=== PATIENT | female | born 1940 | race Caucasian/White ===

== ENCOUNTER 2016-09-06 11:04 | Emergency (ER) | payer MEDICARE ==
[2016-09-06 11:08] VITALS: TEMP 97.8
[2016-09-06 13:29] VITALS: BP 118/58; PULSE 69; RESP 18
--- NOTE | 2016-09-06 14:17 | ED ---
General Adult HPI - General Chief complaint: Headache Stated complaint: head pain Time Seen by Provider: 09/06/16 12:38 Source: patient, RN notes reviewed, old records reviewed Mode of arrival: ambulatory Limitations: no limitations - History of Present Illness Initial comments: This is a 76-year-old female the ER with left-sided neck pain. Patient has no sniffing medical history, no history of headaches or similar symptoms. No fevers no travel history no neurological complaints. No visual changes no hearing changes. Left-sided shooting pain up the back of her neck is occasional and episodic. No again no modifying factors. No trauma - Related Data Home Medications Medication Instructions Recorded Confirmed Aspirin 81 mg PO DAILY 09/06/16 09/06/16 Multivitamins, Thera [Multivitamin] 1 tab PO DAILY 09/06/16 09/06/16 Allergies Allergy/AdvReac Type Severity Reaction Status Date / Time No Known Allergies Allergy Verified 09/06/16 11:08 Review of Systems ROS Statement: Those systems with pertinent positive or pertinent negative responses have been documented in the HPI. ROS Other: All systems not noted in ROS Statement are negative. Past Medical History Additional Past Medical History / Comment(s): pancreatitis History of Any Multi-Drug Resistant Organisms: None Reported Past Surgical History: Cholecystectomy Past Psychological History: No Psychological Hx Reported Smoking Status: Current every day smoker Past Alcohol Use History: None Reported Past Drug Use History: None Reported General Exam Limitations: no limitations General appearance: alert, in no apparent distress Head exam: Present: atraumatic, normocephalic, normal inspection Eye exam: Present: normal appearance, PERRL, EOMI. Absent: scleral icterus, conjunctival injection, periorbital swelling ENT exam: Present: normal exam, mucous membranes moist Neck exam: Present: normal inspection. Absent: tenderness, meningismus, lymphadenopathy Respiratory exam: Present: normal lung sounds bilaterally. Absent: respiratory distress, wheezes, rales, rhonchi, stridor Cardiovascular Exam: Present: regular rate, normal rhythm, normal heart sounds. Absent: systolic murmur, diastolic murmur, rubs, gallop, clicks GI/Abdominal exam: Present: soft, normal bowel sounds. Absent: distended, tenderness, guarding, rebound, rigid Extremities exam: Present: normal inspection, full ROM, normal capillary refill. Absent: tenderness, pedal edema, joint swelling, calf tenderness Back exam: Present: normal inspection Neurological exam: Present: alert, oriented X3, CN II-XII intact Psychiatric exam: Present: normal affect, normal mood Skin exam: Present: warm, dry, intact, normal color. Absent: rash Course Vital Signs 09/06/16 09/06/16 11:06 13:28 Temperature 97.8 F Pulse Rate 100 69 Respiratory 20 18 Rate Blood Pressure 126/60 118/58 O2 Sat by Pulse 99 99 Oximetry - Reevaluation(s) Reevaluation #1: 09/06/16 14:15 Patient has remained isn't back to entire ER stay Medical Decision Making - Medical Decision Making History 16-year-old year with neuralgia pain, sciatica, pain remains gone, patient CT is negative Be discharged home - Radiology Data Radiology results: report reviewed (CT brain and C-spine is negative for acute disease), image reviewed Disposition Clinical Impression: Neuralgia, Cervico-occipital neuralgia Disposition: HOME SELF-CARE Condition: Good Instructions: Paresthesia (ED) Referrals: Stewart Bueno MD [Primary Care Provider] - 1-2 days
--- NOTE | 2016-09-06 14:47 | CT ---
EXAMINATION TYPE: CT brain julieta wo con DATE OF EXAM: 09/06/2016 2:38 PM COMPARISON: NONE HISTORY: Head pain CT DLP: 1281.10 mGycm, Automated exposure control for dose reduction was used. CONTRAST: Patient injected with mL of . CT of the brain is performed utilizing 3 mm thick sections through the posterior fossa and 3 mm thick sections through the remaining calvarium. Study is performed within 24 hours of arrival to the hospital. No abnormal hyperdensity is present to suggest an acute intracranial hemorrhage. No mass lesion is evident. There is an arachnoid cyst in the posterior fossa with mild mass effect on the adjacent brain. No edema is evident within the brain. There is some physiologic basal ganglion c alcification. No acute infarcts are evident. Mild periventricular white matter hypodensity is present, likely on t he basis of chronic white matter ischemic changes. Ventricles and sulci are appropriate for the patient age. Paranasal sinuses and mastoid air cells within the [id number] are clear. IMPRESSIONS: 1. Mild atrophy CT cervical spine. COMPARISON: None CT of the cervical spine is performed in the axial plane at 2 mm thick sections. Reconstructed image s in the coronal, and sagittal plane are reviewed on the computer. No acute fractures are evident. Vertebral body alignment is normal. There is narrowing of the C5-6 and C6-7 disc spaces. Vertebral body heights are preserved. C3-4: Some central disc bulging may be present C3-4 with mild anterior thecal sac compression. No AP spinal canal stenosis is present. Neural foramen are patent. C5-6: There is endplate spurring and calcification of the posterior longitudinal ligament with mild a nterior thecal sac compression. This is slightly greater to the right paracentral region. AP spinal c anal stenosis is not present. Neural foraminal narrowing is present C5-6. C6-7: Uncovertebral joint hypertrophy is present with bilateral foraminal stenosis. Endplate spurring has anterior thecal sac flattening. Emphysematous changes are present in the lung apices. IMPRESSIONS: 1. No acute osseous abnormality. Degenerative disc changes are present in the mid to lower cervical s pine
== END 2016-09-06 14:46 | disposition home or self-care (01) ==
LOC: EC 11:04
DX: M54.81 Occipital neuralgia (principal); F17.200 Nicotine dependence, unspecified, uncomplicated; Z79.82 Long term (current) use of aspirin
CPT/HCPCS: 70450; 72125; 99284